=== PATIENT | female | born 1950 | race Caucasian/White ===

== ENCOUNTER → 2016-11-16 | Outpatient (CLI) | payer BC | LOC: COL.RAD 07:38 | DX: M25.552 Pain in left hip (principal) | CPT/HCPCS: J3301; Q9967 ==

== ENCOUNTER → 2016-12-08 | Outpatient (CLI) | payer BC | LOC: COL.RAD 08:00 | DX: M25.552 Pain in left hip (principal); M54.5 Low back pain | CPT/HCPCS: J3301; Q9967 ==

== ENCOUNTER → 2017-02-14 | Outpatient (CLI) | payer BC | LOC: MHCPAIN 11:59 | DX: G89.29 Other chronic pain (principal); M47.817 Spondylosis without myelopathy or radiculopathy, lumbosacral region; M54.16 Radiculopathy, lumbar region; M53.3 Sacrococcygeal disorders, not elsewhere classified; M16.12 Unilateral primary osteoarthritis, left hip; F17.210 Nicotine dependence, cigarettes, uncomplicated | CPT/HCPCS: G0463 ==

== ENCOUNTER 2017-10-27 13:18 | Inpatient (IN) | payer MEDICARE, BC ==
[~2017-10-27] VITALS: Ht 162.6 cm; Wt 109.7 kg
[2018-01-02] VITALS (10 sets, daily range): BP systolic 120–155; BP diastolic 47–83; PULSE 50–71; TEMP 97–98.4
[2018-01-02] MEDS ORDERED: NORVASC 10MG10 MG PO (05:52)
[2018-01-02] MEDS ORDERED: PRINIVIL20 MG PO (05:53)
[2018-01-02] MEDS ORDERED: CELEBREX 1100 MG/CAP PO (05:53)
[2018-01-02] MEDS ORDERED: HCTZ12.5TAB PO (05:54)
[2018-01-02] MEDS ORDERED: TYLENOL 500MG500 MG PO (05:55)
[2018-01-03 00:15] VITALS: BP 119/55; PULSE 62; TEMP 98.1
[2018-01-03 03:43] VITALS: BP 125/62; PULSE 62; TEMP 98.1
[2018-01-03 06:38] LABS: HEMOGLOBIN 12.1 g/dl (12.5-16.0)
[2018-01-03 06:41] LABS: HEMATOCRIT 36.9 % (37.0-47.0)
[2018-01-03 06:50] VITALS: BP 146/68; PULSE 68; TEMP 99.4
[2018-01-03 11:19] VITALS: BP 120/58; PULSE 67; TEMP 98.7
[2018-01-03 15:39] VITALS: BP 112/50; PULSE 69; TEMP 97.7
[2018-01-03 19:25] VITALS: BP 122/49; PULSE 74; TEMP 98.5
[2018-01-03] MEDS ORDERED: NORCO 325 MG-7.1 TAB PO (21:27)
[2018-01-03] MEDS ORDERED: ASPI325T6 PO (21:27)
[2018-01-03] MEDS ORDERED: ROXICODONE 55 MG/TAB PO (21:28)
[2018-01-04] VITALS (7 sets, daily range): BP systolic 110–127; BP diastolic 40–67; PULSE 65–74; TEMP 97.6–100.1
[2018-01-05 04:22] VITALS: BP 149/57; PULSE 73; TEMP 98.1
[2018-01-05 06:14] LABS: BASO % 0.3 % (0.0-2.0); GRAN # 6.4 (1.4-6.5); GRAN % 72.8 % (42.2-75.2); LYMPH # 1.6 (1.2-3.4); LYMPH % 17.6 % (20.0-51.0); MEAN CELL VOLUME 94 fl (80.0-100.0); MEAN CORPUSCULAR HGB CONC 33 g/dl (33.0-37.0); MEAN PLATELET VOLUME 11.2 fl (7.4-10.4); MONO # 0.8 (0.1-0.6); MONO % 8.8 % (1.7-9.3); PLATELET COUNT 183 K/mm3 (130-400); RED BLOOD COUNT 3.66 M/mm3 (4.10-5.30); REDCELL DISTRIBUTION WIDTH-CV 13.9 % (11.5-14.5)
[2018-01-05 06:19] LABS: HEMATOCRIT 34.3 % (37.0-47.0); HEMOGLOBIN 11.2 g/dl (12.5-16.0); MEAN CORPUSCULAR HEMOGLOBIN 31 pg (27.0-31.0)
[2018-01-05] MEDS ORDERED: FLEXERIL 1010 MG/TAB PO (06:55)
[2018-01-05 08:08] VITALS: BP 133/50; PULSE 76; TEMP 98.5
[2018-01-05 11:06] VITALS: BP 115/63; PULSE 70; TEMP 98.5
== END 2018-01-05 14:31 | disposition home or self-care (01) | DRG 470 ==
LOC: JCC 01-02 05:05
PROVIDERS: Orthopaedic Surgery
PROC: 0SRB0JA Replacement of Left Hip Joint with Synthetic Substitute, Uncemented, Open Approach (ICD-10-PCS; principal; 2018-01-02 08:25)
DX: M16.12 Unilateral primary osteoarthritis, left hip (principal); Z68.42 Body mass index [BMI] 45.0-49.9, adult; E66.01 Morbid (severe) obesity due to excess calories; R07.81 Pleurodynia; J44.9 Chronic obstructive pulmonary disease, unspecified; F17.210 Nicotine dependence, cigarettes, uncomplicated; I10 Essential (primary) hypertension; E11.9 Type 2 diabetes mellitus without complications; M79.7 Fibromyalgia
CPT/HCPCS: 99222; 99239; A4314; A9284; C1713; C1776; J0690; J1885; J2250; J2270; J2405; J2704; J3010; J7030

== ENCOUNTER → 2017-12-22 | Outpatient (CLI) | payer BC ==
[2017-12-22 11:32] LABS: HIV 1/2 Antibodies Non-Reactive; HIV-1p24 Antigen Non-Reactive
[2017-12-24 16:19] LABS: HEPATITIS Be ANTIGEN Negative (Negative)
== END ==
LOC: COL.LAB 10:22
PROVIDERS: Orthopaedic Surgery
DX: Z01.812 Encounter for preprocedural laboratory examination (principal); M16.12 Unilateral primary osteoarthritis, left hip

== ENCOUNTER → 2019-01-17 | Outpatient (CLI) | payer BC ==
[~2019-01-17] MED LIST: ASPI325T6 PO; CELEBREX 1100 MG/CAP PO; FLEXERIL 1010 MG/TAB PO; HCTZ12.5TAB PO; NORCO 325 MG-7.1 TAB PO; NORVASC 10MG10 MG PO; PRINIVIL20 MG PO; ROXICODONE 55 MG/TAB PO; TYLENOL 500MG500 MG PO
== END ==
LOC: COL.VAS 12:39
DX: I70.1 Atherosclerosis of renal artery (principal); I51.7 Cardiomegaly; I34.0 Nonrheumatic mitral (valve) insufficiency
CPT/HCPCS: A9562